=== PATIENT | male | born 1995 | race African-American/Black ===

== ENCOUNTER 2019-10-29 09:18 | Emergency (ER) | payer MEDICAID ==
[~2019-10-29] VITALS: Ht 170.2 cm; Wt 81.6 kg
[2019-10-29 09:28] VITALS: BP 128/77
--- NOTE | 2019-10-29 09:30 | NUR ---
SEEN AND EXAMINED BY .
--- NOTE | 2019-10-29 09:39 | NUR ---
APPRAISAL COORDINATOR AT BEDSIDE FOR XRAY.
--- NOTE | 2019-10-29 09:55 | NUR ---
SHOULDER SLING APPLIED BY RESIDENTIAL PROGRAM MANAGER.
== END 2019-10-29 09:59 | disposition home or self-care (01) ==
LOC: ER 09:21
DX: S43.492A Other sprain of left shoulder joint, initial encounter (principal); Z98.890 Other specified postprocedural states; Z88.0 Allergy status to penicillin; X50.0XXA Overexertion from strenuous movement or load, initial encounter; Y93.89 Activity, other specified; Y92.89 Other specified places as the place of occurrence of the external cause; Y99.8 Other external cause status
CPT/HCPCS: 73030-TC

== ENCOUNTER 2021-11-25 10:28 | Emergency (ER) | payer MEDICAID ==
[~2021-11-25] VITALS: Ht 172.7 cm; Wt 76.2 kg
[2021-11-25] MEDS ORDERED: ONDANSETRON HCL/PF 4 MG/2 ML VIAL ONE (10:50)
[2021-11-25] MEDS ORDERED: FAMOTIDINE/PF INJ 20 MG/2 ML VIAL IV ONE ×2 (10:50→11:00)
[2021-11-25] MEDS ORDERED: LIDOCAINE VISCOUS 2% UD 15 ML UDC ONE (10:50)
[2021-11-25] MEDS ORDERED: MAG HYDROX/AL HYDROX/SIMETH 30 ML UDC ONE (10:50)
[2021-11-25] MEDS ORDERED: LIDOCAINE VISCOUS 2% UD 15 ML UDC MM ONE (11:00)
[2021-11-25] MEDS ORDERED: MAG HYDROX/AL HYDROX/SIMETH 30 ML UDC PO ONE (11:00)
[2021-11-25] MEDS ORDERED: IV D5 LR 1,000 ML IV ONE (11:00)
[2021-11-25] MEDS ORDERED: ONDANSETRON HCL/PF 4 MG/2 ML VIAL IVP ONE (11:00)
--- NOTE | 2021-11-25 11:01 | NUR ---
IV LINE ESABLISHED ON LAC #20, PHLEB AT BEDSIDE FOR BLOOD SPECIMEN COLLECTION
[2021-11-25 11:14] LABS: BASOPHILS % (AUTO) 0.4 % (0.0-2.0); HEMATOCRIT 49 % (39-51); HEMOGLOBIN 16.3 g/dL (13.5-17.5); LYMPHOCYTES # (AUTO) 1.7 K/uL (0.8-4.8); LYMPHOCYTES % (AUTO) 24.6 % (20.0-44.0); MEAN CORPUSCULAR HGB CONC 33 g/dl (31.0-36.0); MEAN CORPUSCULAR VOLUME 95 fL (80-96); MONOCYTES # (AUTO) 0.8 K/uL (0.1-1.30); MONOCYTES % (AUTO) 10.8 % (2.0-12.0); NEUTROPHILS # (AUTO) 4.4 K/uL (1.8-8.9); NEUTROPHILS % (AUTO) 63.2 % (43.0-81.0); PLATELET COUNT (AUTO) 272 K/uL (150-450); RED BLOOD CELL COUNT(AUTO) 5.19 MIL/uL (4.5-6.0)
--- NOTE | 2021-11-25 11:29 | NUR ---
PT TAKEN TO RADIOLOGY VIA [facility]
--- NOTE | 2021-11-25 11:33 | NUR ---
PT RETURNED FROM RADIOLOGY
--- NOTE | 2021-11-25 11:42 | NUR ---
PT UNABLE TO PROVIDE URINE SAMPLE; URINAL GIVEN TO PT AT BEDSIDE.
[2021-11-25 11:43] LABS: CALCIUM, SERUM 9.2 mg/dL (8.5-10.1); CREATININE 1.3 mg/dL (0.6-1.3)
[2021-11-25 11:50] LABS: ALBUMIN 4.6 g/dL (3.4-5.0); BILIRUBIN,DIRECT 0.1 mg/dL (0.0-0.2); BILIRUBIN,TOTAL 0.4 mg/dL (0.2-1.0); TOTAL PROTEIN, SERUM 8.2 g/dL (6.4-8.2)
[2021-11-25] MEDS ORDERED: FAMO20TA8 PO (12:07)
[2021-11-25] MEDS ORDERED: MAG355OR21 PO (12:07)
[2021-11-25] MEDS ORDERED: ONDA4TAB5 PO (12:07)
--- NOTE | 2021-11-25 12:21 | NUR ---
IV removed. Catheter intact and site benign. Pressure and 4x4 applied to site. No bleeding noted.
[2021-11-25 12:42] VITALS: BP 130/76
--- NOTE | 2021-11-25 12:42 | NUR ---
Patient discharged to home in stable condition. Written and verbal after care instructions given. Patient verbalizes understanding of instruction.
== END 2021-11-25 12:43 | disposition home or self-care (01) ==
LOC: ER 10:32
DX: A08.4 Viral intestinal infection, unspecified (principal); R10.84 Generalized abdominal pain; R11.2 Nausea with vomiting, unspecified; Z88.0 Allergy status to penicillin
CPT/HCPCS: 99284; 74176; 96374; 96361; 96375; 85025; 80048; 83690; 80076; J3490 ×3; J2405

== ENCOUNTER 2024-04-27 08:28 | Emergency (ER) | payer MEDICAID ==
[~2024-04-27] VITALS: Ht 172.7 cm; Wt 87.5 kg
[~2024-04-27 08:28] MED LIST: FAMO20TA8 PO; MAG355OR21 PO; ONDA4TAB5 PO
[2024-04-27] MEDS ORDERED: ONDANSETRON HCL/PF 4 MG/2 ML VIAL ONE (08:48)
[2024-04-27] MEDS: IV NS 0.9% 1,000 ML BAG IV ONE (09:02)
[2024-04-27] MEDS: ONDANSETRON HCL/PF 4 MG/2 ML VIAL IVP ONE (09:02)
[2024-04-27 09:13] LABS: BASOPHILS % (AUTO) 0.5 % (0.0-2.0); EOSINOPHILS # (AUTO) 0.1 K/uL (0.0-0.7); EOSINOPHILS % (AUTO) 0.9 % (0.0-6.0); HEMATOCRIT 44 % (39-51); HEMOGLOBIN 14.6 g/dL (13.5-17.5); LYMPHOCYTES # (AUTO) 1.7 K/uL (0.8-4.8); LYMPHOCYTES % (AUTO) 22.4 % (20.0-44.0); MEAN CORPUSCULAR HEMOGLOBIN 31 PG (26.0-33.0); MEAN CORPUSCULAR HGB CONC 33 g/dl (31.0-36.0); MEAN CORPUSCULAR VOLUME 93 fL (80-96); MONOCYTES # (AUTO) 0.7 K/uL (0.1-1.30); MONOCYTES % (AUTO) 9.1 % (2.0-12.0); NEUTROPHILS % (AUTO) 67.1 % (43.0-81.0); PLATELET COUNT (AUTO) 299 K/uL (150-450); RED BLOOD CELL COUNT(AUTO) 4.75 MIL/uL (4.5-6.0); RED CELL DISTRIBUTION WIDTH 13.4 % (11.5-15.0); WHITE BLOOD COUNT (AUTO) 7.4 K/uL (4.3-11.0)
[2024-04-27 09:16] LABS: CALCIUM, SERUM 9.5 mg/dL (8.5-10.1); CREATININE 1.4 mg/dL (0.6-1.3); POTASSIUM 4.3 mmol/L (3.5-5.1)
[2024-04-27 09:20] LABS: APPEARANCE,URINE CLEAR (CLEAR); BILIRUBIN,URINE NEGATIVE (NEGATIVE); BLOOD, URINE NEGATIVE Ery/uL (NEGATIVE); COLOR,URINE YELLOW (YELLOW); KETONES,URINE NEGATIVE (NEGATIVE); LEUKOCYTE ESTERASE ,URINE NEGATIVE (NEGATIVE); NITRITE, URINE NEGATIVE (NEGATIVE); PROTEIN,URINE TRACE mg/dl (NEGATIVE); UGLUCOSE NEGATIVE (NEGATIVE); UROBILINOGEN,URINE 0.2 EU/dL (0.2)
[2024-04-27 09:22] LABS: ALBUMIN 4.3 g/dL (3.4-5.0); BILIRUBIN,DIRECT 0.1 mg/dL (0.0-0.2); BILIRUBIN,TOTAL 0.5 mg/dL (0.2-1.0); TOTAL PROTEIN, SERUM 7.7 g/dL (6.4-8.2)
[2024-04-27 09:35] LABS: ADD URINE CULTURE NO; BACTERIA,URINE Rare /HPF (None Seen); RBC,URINE 0-2 /HPF (0-2); SQUAMOUS EPITHELIAL CELL,UR None Seen /HPF (None Seen); WBC,URINE 0-2 /HPF (0-3)
[2024-04-27 10:17] VITALS: BP 125/90; TEMP 98.6; O2SAT 98
== END 2024-04-27 10:18 | disposition home or self-care (01) ==
LOC: ER 08:43
DX: R10.84 Generalized abdominal pain (principal); R09.81 Nasal congestion; R11.2 Nausea with vomiting, unspecified; R53.1 Weakness; F17.200 Nicotine dependence, unspecified, uncomplicated; Z88.0 Allergy status to penicillin
CPT/HCPCS: 99283; 96374; 96361; 85025; 80048; 83690; 80076; 81001; 36415; J2405; J7030

== ENCOUNTER 2024-07-30 08:45 | Emergency (ER) | payer MEDICAID ==
[~2024-07-30] VITALS: Ht 172.7 cm; Wt 87.5 kg
[2024-07-30 08:54] VITALS: BP 127/68; TEMP 98.2
[2024-07-30] MEDS ORDERED: NAPR-1009 PO (09:33)
[2024-07-30 09:43] VITALS: O2SAT 98
== END 2024-07-30 09:44 | disposition home or self-care (01) ==
LOC: ER 08:48
DX: S63.591A Other specified sprain of right wrist, initial encounter (principal); F17.200 Nicotine dependence, unspecified, uncomplicated; Z88.0 Allergy status to penicillin; Z79.899 Other long term (current) drug therapy; X50.0XXA Overexertion from strenuous movement or load, initial encounter; Y93.89 Activity, other specified; Y92.89 Other specified places as the place of occurrence of the external cause; Y99.8 Other external cause status
CPT/HCPCS: 73110